=== PATIENT | female | born 1970 | race Caucasian/White ===

== ENCOUNTER 2022-09-17 11:39 | Inpatient (IN) | payer MEDICAID ==
[~2022-09-17] VITALS: Ht 154.9 cm; Wt 82.7 kg
--- NOTE | 2022-09-17 11:40 | NUR ---
Pt was brought to ER by her employer. Pt states she was cleaning and sudden onset of palpitations, chest pain and SOB at 0945 this morning. Pt ambulatory to room 1B, placed on pvc monitor, pulse ox and BP. at bedside.
[2022-09-17] MEDS ORDERED: ADENOSINE 6 MG/2 ML SYR IV ONE ×3 (11:49→12:45)
[2022-09-17] MEDS ORDERED: IV NORMAL SALINE 500 ML BAG IV ONE (12:00)
[2022-09-17 12:29] LABS: CREATININE 0.8 mg/dL (0.6-1.3); HEMATOCRIT 41.5 % (31.2-41.9); MEAN CORPUSCULAR HEMOGLOBIN 30.6 uug (24.7-32.8); MEAN CORPUSCULAR VOLUME 90.6 fL (75.5-95.3); PLATELET COUNT (AUTO) 235 K/uL (179-408); POTASSIUM 3.9 mmol/L (3.5-5.1)
--- NOTE | 2022-09-17 12:39 | NUR ---
"Plan to admit" per Dr Gallego. ER registration/admitting staff Riaz notified.
[2022-09-17 12:44] LABS: BILIRUBIN,TOTAL 0.5 mg/dL (0.2-1.0); TOTAL PROTEIN, SERUM 7.9 g/dL (6.4-8.2)
--- NOTE | 2022-09-17 13:17 | NUR ---
[email or web address]
[2022-09-17] MEDS ORDERED: REMEDY ESSENTIAL ZINC PASTE 113 GM TP PRN (15:15)
[2022-09-17] MEDS ORDERED: MAGNESIUM HYDROXIDE 30 ML LIQUID UDC PO PRN (15:15)
[2022-09-17] MEDS ORDERED: ONDANSETRON 4 MG/2 ML VIAL IV PRN (15:15)
[2022-09-17] MEDS ORDERED: ACETAMINOPHEN 325 MG TABLET PO PRN (15:15)
[2022-09-17 15:46] VITALS: BP 108/68
--- NOTE | 2022-09-17 16:30 | NUR ---
ADMITTED VIA GURNEY, ACCOMPANIED BY NURSE. TELEMETRY PLACED ON. DENIES CHEST PAIN OR SOB.
[2022-09-17 16:54] VITALS: BP 108/54
--- NOTE | 2022-09-17 17:30 | NUR ---
ORIENTID TO SURROUNDINGS. IN GOOD SPIRITS. STATES NO FURTHER SVT.
[2022-09-17] MEDS: IV NS 1000 ML 1,000 ML IV PRN (17:56)
[2022-09-17] MEDS: ENOXAPARIN SODIUM 40 MG/0.4 ML DISP.SYRIN SQ SCH (17:58)
--- NOTE | 2022-09-17 19:00 | NUR ---
DINNER WILMAN. WELL. NS RUNNING AT 75 CC/H. ECHO DONE WITH EF OF 60%.
--- NOTE | 2022-09-17 19:45 | NUR ---
Received patient in bed, AAO x 3. No SOB, not on any form of distress. IV access on RAC intact and patent with IVF infusing. Sinus rhythm on tele with HR 67 bpm.
[2022-09-17 20:38] VITALS: BP 103/55
--- NOTE | 2022-09-17 22:15 | NUR ---
Troponin level 256, relayed to Primo Lee NP. No new order.
[2022-09-18 00:02] VITALS: BP 98/55
[2022-09-18 04:13] VITALS: BP 97/55
[2022-09-18] MEDS ORDERED: PANTOPRAZOLE SODIUM 40 MG TABLET.DR PO SCH (07:00)
[2022-09-18 07:21] LABS: HEMATOCRIT 42.1 % (31.2-41.9); MEAN CORPUSCULAR HEMOGLOBIN 30.2 uug (24.7-32.8); PLATELET COUNT (AUTO) 238 K/uL (179-408)
[2022-09-18] MEDS: IV NS 1000 ML 1,000 ML IV PRN (07:25)
--- NOTE | 2022-09-18 07:30 | NUR ---
Awake, alert, oriented x 4. Denies chest pain or palpitation. Tele SR 65. IVF infusing.
[2022-09-18 08:12] LABS: CREATININE 0.7 mg/dL (0.6-1.3); PHOSPHOROUS 3.1 mg/dL (2.5-4.9); POTASSIUM 4.1 mmol/L (3.5-5.1)
[2022-09-18] MEDS: ENOXAPARIN SODIUM 40 MG/0.4 ML DISP.SYRIN SQ SCH (08:57)
[2022-09-18] MEDS ORDERED: METOPROLOL SUCCINATE XL 25 MG TAB.SR.24H PO SCH (10:30)
[2022-09-18 11:34] VITALS: BP 99/48
[2022-09-18] MEDS ORDERED: METO-356 PO (12:08)
--- NOTE | 2022-09-18 14:30 | NUR ---
With discharge order to home. Saline lock removed. Tele removed. DC instruction given, verbalized understanding. Went home in fair condition, not in distress, afebrile.
== END 2022-09-18 14:30 | disposition home or self-care (01) | DRG 201 ==
LOC: ER 11:39 → TELE3 14:15
PROVIDERS: ADMIT Nurse Practitioner Family; ATTEND Nurse Practitioner Family
DX: I47.1 Supraventricular tachycardia (principal); I21.A1 Myocardial infarction type 2; G43.909 Migraine, unspecified, not intractable, without status migrainosus; R73.9 Hyperglycemia, unspecified; Z90.710 Acquired absence of both cervix and uterus; Z20.822 Contact with and (suspected) exposure to COVID-19
CPT/HCPCS: 36415; 70030-TC; 71045; 83735; 84100; 84443; 84484; 85025; 85610; 93307; A4663; G0378; J0153; J1650; J7040